=== PATIENT | female | born 1985 | race Hispanic/Latino ===

== ENCOUNTER 2019-05-23 13:25 | Emergency (ER) | payer OTHER ==
[2019-05-23] MEDS ORDERED: Ketorolac Tromethamine 30 MG/ML VIAL ONE (15:06)
[2019-05-23] MEDS ORDERED: Ondansetron ODT 4 MG TAB ONE (15:06)
--- NOTE | 2019-05-23 15:42 | RAD ---
LEFT ANKLE THREE VIEWS: HISTORY: Injury. COMPARISON: None. FINDINGS: There is an osteochondral defect at the medial talar dome. There is no significant ankle joint effus ion. IMPRESSION: Osteochondral defect of medial talar dome; otherwise unremarkable examination. The fragment is somew hat sclerosed. POS: CET
== END 2019-05-23 16:50 | disposition home or self-care (01) ==
LOC: ERS 13:25
DX: M25.572 Pain in left ankle and joints of left foot (principal)
CPT/HCPCS: 29515; 96372; J1885; Q0162